=== PATIENT | male | born 2000 | race Two or more races ===

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

== ENCOUNTER 2022-11-06 03:42 | Emergency (ER) | payer MEDICAID, OTHER ==
[~2022-11-06] VITALS: Ht 188 cm; Wt 108.9 kg
[2022-11-06] MEDS ORDERED: HYDROCODONE/APAP 5/325MG TABLET ONE (03:57)
[2022-11-06] MEDS ORDERED: HYDROCODONE/APAP 5/325MG TABLET PO ONE (04:00)
--- NOTE | 2022-11-06 04:41 | NUR ---
PT TAKEN TO XRAY BY TECH
--- NOTE | 2022-11-06 05:20 | NUR ---
PT CAME BACK FROM CT.
[2022-11-06] MEDS ORDERED: IBUP-1953 PO (07:48)
--- NOTE | 2022-11-06 09:01 | NUR ---
Patient discharged to home in stable condition. Written and verbal after care instructions given. Patient verbalizes understanding of instruction.
[2022-11-06 11:20] VITALS: BP 159/94; TEMP 98.2; O2SAT 98
== END 2022-11-06 09:02 | disposition home or self-care (01) ==
LOC: ER 03:44
DX: S89.81XA Other specified injuries of right lower leg, initial encounter (principal); M54.6 Pain in thoracic spine; V89.2XXA Person injured in unspecified motor-vehicle accident, traffic, initial encounter; Y93.89 Activity, other specified; Y92.89 Other specified places as the place of occurrence of the external cause; Y99.8 Other external cause status
CPT/HCPCS: 72074-TC; 73010-TC; 73564-TC; 73590-TC